=== PATIENT | female | born 1955 | race African-American/Black ===

== ENCOUNTER 2019-02-27 17:44 | Emergency (ER) | payer OTHER ==
[~2019-02-27] VITALS: Ht 170.2 cm; Wt 108.9 kg
[2019-02-27] MEDS ORDERED: PREDNISONE 10 M10 MG PO (18:30)
[2019-02-27] MEDS ORDERED: NEURONTIN 300300 M1 PO (18:30)
[2019-02-27 19:03] VITALS: BP 165/81
== END 2019-02-27 18:58 | disposition home or self-care (01) ==
LOC: ER 17:44
DX: G50.0 Trigeminal neuralgia (principal); M79.7 Fibromyalgia; M19.90 Unspecified osteoarthritis, unspecified site; Z88.0 Allergy status to penicillin; Z88.8 Allergy status to other drugs, medicaments and biological substances